=== PATIENT | female | born 1950 | race Caucasian/White ===

== ENCOUNTER → 2017-04-10 | Outpatient (CLI) | payer MEDICARE, OTHER ==
[~2017-04-10] MED LIST: IOHEXOL 240 MG/ML 50ML VIAL. ONE; IOHEXOL 300 MG/ML 75 ML VIAL. IV ONE
[2017-04-10 10:09] LABS: GFR 55.6
--- NOTE | 2017-04-10 11:33 | RAD ---
CT abdomen and pelvis with IV contrast History: Mid abdominal pain for one week. Comparison: None. Technique: After administration of oral and intravenous contrast, 60 mL Omnipaque 300, helical CT of the abdomen and pelvis was performed from the lung bases through the ischial tuberosities. Axial, sagittal, and coronal reconstructions were obtained. One or more of the following individualized dose reduction techniques were utilized for the study: Automated exposure control Adjustment of mA and/or kV according to patient's size Use of iterative reconstruction technique. Findings: Liver, spleen, pancreas, and bilateral adrenal glands are unremarkable. Cholelithiasis is seen. Small duodenal diverticulum is seen. Bilateral kidneys enhance symmetrically. There is no evidence of bowel obstruction. No free air or free fluid is identified in the abdomen or pelvis. Appendix appears within normal limits. Urinary bladder is unremarkable. Aortic atherosclerosis is seen. The uterus and adnexa unremarkable CT appearance. Extensive diverticulosis is seen involving the sigmoid colon. There appears to be mild amount of fat stranding surrounding the distal sigmoid colon. There is also a focus of apparently fecaloid material within the posterior mid pelvis, which may be within the lumen of the sigmoid colon versus within a giant diverticulum adjacent and to the left of the sigmoid colon. The exact location of the lumen of the sigmoid colon is difficult to assess given lack of oral contrast within the colon. Degenerative changes are present with spine. Impression: 1. There is evidence of a mild stranding inflammatory change involving the pelvis appears to be centered at the distal sigmoid colon. Consequently, findings are favored to represent mild focal colitis versus diverticulitis. 2. Question giant diverticulum filled with fecaloid material arising from the sigmoid colon versus a fecal ball within the lumen of the sigmoid colon. 3. Cholelithiasis.
== END | disposition home or self-care (01) ==
LOC: CT 09:21
PROVIDERS: ATTEND Physician Assistant Medical
DX: R10.31 Right lower quadrant pain (principal); K80.20 Calculus of gallbladder without cholecystitis without obstruction
CPT/HCPCS: 36415; 74177; 82565; Q9966; Q9967